=== PATIENT | female | born 2000 | race Caucasian/White ===

== ENCOUNTER 2021-08-29 16:18 | Inpatient (IN) | payer OTHER ==
[~2021-08-29] VITALS: Ht 170.2 cm; Wt 109.3 kg
[~2021-08-29 16:18] MED LIST: IBUPROFEN600 MG PO; NORCO 5-325 TA1 EACH PO; ONDANSETRON ODT4 MG PO; PRINIVIL10 MG PO
[2021-08-29 16:48] LABS: HEMOGLOBIN 10.9 gm/dl (12.3-15.3); RED BLOOD COUNT 3.9 M/UL (4.00-5.10); WHITE BLOOD COUNT 10.4 K/UL (4.5-11.0)
[2021-08-29] MEDS ORDERED: NORVASC5 MG PO (17:31)
[2021-08-30] MEDS ORDERED: IBUPROFEN800 MG PO (17:29)
[2021-08-30] MEDS ORDERED: DOCUSATE SODIU100 MG PO (17:29)
[2021-08-30] MEDS ORDERED: HYDROCODON-ACE1 EAC4 PO (17:29)
[2021-08-31 05:07] LABS: HEMOGLOBIN 9.8 gm/dl (12.3-15.3)
[2021-08-31] MEDS ORDERED: FERROUS SULFAT325 M2 PO (13:27)
== END 2021-09-01 16:27 | disposition home or self-care (01) | DRG 806 ==
LOC: GENOP 16:18 → OB 16:27
PROVIDERS: Obstetrics & Gynecology; ADMIT Obstetrics & Gynecology
PROC: 10E0XZZ Delivery of Products of Conception, External Approach (ICD-10-PCS; principal; 2021-08-29)
PROC: 0KQM0ZZ Repair Perineum Muscle, Open Approach (ICD-10-PCS; 2021-08-29)
PROC: 4A1HXCZ Monitoring of Products of Conception, Cardiac Rate, External Approach (ICD-10-PCS; 2021-08-29)
PROC: 10907ZC Drainage of Amniotic Fluid, Therapeutic from Products of Conception, Via Natural or Artificial Opening (ICD-10-PCS; 2021-08-29)
DX: O10.92 Unspecified pre-existing hypertension complicating childbirth (principal); D62 Acute posthemorrhagic anemia; Z37.0 Single live birth; Z20.822 Contact with and (suspected) exposure to COVID-19; Z3A.37 37 weeks gestation of pregnancy; Z88.0 Allergy status to penicillin; O69.81X0 Labor and delivery complicated by cord around neck, without compression, not applicable or unspecified; O70.1 Second degree perineal laceration during delivery; O90.81 Anemia of the puerperium
CPT/HCPCS: 36415; 82800; 85014; 85018; 85025; 90715; C9113; J2405; J2590; J7120